=== PATIENT | female | born 1945 | race Caucasian/White ===

== ENCOUNTER 2017-04-11 12:54 | Emergency (ER) | payer OTHER ==
[~2017-04-11] VITALS: Ht 190.5 cm; Wt 90.3 kg
[2017-04-11] MEDS ORDERED: cloNIDine HCL 0.1 MG TAB PO ONE (13:15)
[2017-04-11 14:05] LABS: Basophils # (auto) 0.1 uL; Basophils % (auto) 0.5 % (0.0-2.0); Eosinophils # (auto) 0.2 uL; Eosinophils % (auto) 1.7 % (0.0-7.0); Hematocrit 42.6 % (36.0-46.0); Hemoglobin 14.4 g/dL (12.2-16.2); Lymphocytes # (auto) 4.4 uL; Lymphocytes % (auto) 40.8 % (10.0-50.0); Mean Corpuscular Hemoglobin 30.8 pg (28.0-32.0); Mean Corpuscular Hgb Conc. 33.7 g/dL (32.0-36.0); Mean Corpuscular Volume 91.3 fL (80.0-100.0); Monocytes # (auto) 0.5 uL; Monocytes % (auto) 4.8 % (0.0-12.0); Neutrophils # (auto) 5.6 uL; Neutrophils % (auto) 52.2 % (37.0-80.0); Nucleated Red Blood Cells % 0.6 %; Platelet Count (auto) 245 10^3/uL (140-450); Red Cell Distribution Width 13.3 % (11.8-14.3); White Blood Cell 10.7 10^3/uL (4.4-10.8)
[2017-04-11 14:33] LABS: Albumin 3.6 g/dL (3.4-5.0); Alkaline Phosphatase 74 U/L (45-117); Anion Gap 8 (5-15); Aspartate Aminotransferase 24 U/L (15-37); BUN/Creatinine Ratio 15.7; Bilirubin, Total 0.8 mg/dL (0.2-1.0); Blood Urea Nitrogen 13 mg/dL (7-18); Calcium 8.6 mg/dL (8.5-10.1); Carbon Dioxide 25 mmol/L (21-32); Chloride 107 mmol/L (98-107); GFR African American 87 mL/min; GFR Non-African American 72 mL/min; Glucose 92 mg/dL (74-106); Magnesium 2.4 mg/dL (1.6-2.6); Potassium 4.1 mmol/L (3.5-5.1); Sodium 140 mmol/L (136-145); Total Protein 6.8 g/dL (6.4-8.2)
[2017-04-11 15:13] VITALS: BP 147/68
== END 2017-04-11 15:20 | disposition home or self-care (01) ==
LOC: ER 12:54
DX: R07.89 Other chest pain (principal); I10 Essential (primary) hypertension; R51 Headache; E78.5 Hyperlipidemia, unspecified; Z90.49 Acquired absence of other specified parts of digestive tract; Z88.1 Allergy status to other antibiotic agents
CPT/HCPCS: 36415; 71010; 80053; 83735; 84484; 85025; 93005

== ENCOUNTER 2024-08-17 15:43 | Emergency (ER) | payer OTHER ==
--- NOTE | 2024-08-17 15:57 | ED.PDOC ---
HPI Comments HPI: 79 year old female ANCA presents to the ED with chief complaint of SOB and A-Fib RVR. EMS reports that the patient had went to [facility] today for a re- evaluation of her bottom lip with some swelling after a dog scratch a week ago. EMS relays that the patient was found to be A-Fib RVR on their EKG and they called 911 for assistance. Patient states she has been experiencing exertional SOB since 07/28/24. EMS notes that the patient's BP was 160/100s on route to the ED. Patient reports that she took her A-Fib medication today. Patient denies any chest pain, headache, N/V, dizziness, numbness, or weakness Initial Vital Signs: Temp : 98.1F BP: 168/100 HR: 137 RR: 20 SpO2: 98% Past Medical History: HTN, HLD, A-Fib, GERD, CLL, Prediabetes, Hypothyroidism Past Surgical History: Cholecystectomy Social History: Denies smoking, ETOH, or drug use. Medications: Pradaxa, Bisoprolol, Atorvastatin Allergies: Sulfamethoxazole w/ Trimethoprim REVIEW OF SYSTEMS: CONSTITUTIONAL: Denies acute: fever, diaphoresis, chills, generalized weakness. HEAD: Denies acute: headache, photophobia Eyes: Denies acute: Double vision, vision loss, eye pain, eye discharge. EARS: Denies acute: tinnitus, hearing loss, ear discharge, ear pain, THROAT: Denies acute: sore throat, swelling, difficulty swallowing , pain with swallowing, change in voice. NECK: Denies acute: neck pain, neck swelling, stiff neck. HEART: Denies acute : chest pain, palpitations, LUNGS: Denies acute: wheezing, cough, hemoptysis ABDOMEN: Denies acute: abdominal pain, Nausea, Vomiting, diarrhea, melena , hematemesis, hematochezia SKIN: Denies acute: rash, redness, lesions, itchiness. EXTREMITIES: Denies acute: calf pain, numbness, tingling, weakness, denies pain in extremity. Denies acute: Low back pain. Neuro: Denies acute: focal neurological deficit, motor or sensory focal neurological deficit, tremors, seizure like activity, confusion, dizziness, change in mental status, loss of bowel or bladder function, cauda equina like symptoms. : Denies acute: dysuria, hematuria, flank pain, increase in urinary frequency. PSYCH: Denies acute: hallucination, suicidal ideation, homicidal ideation. FEMALE: Denies acute: abnormal vaginal bleeding, foul odor, unusual discharge. PHYSICAL EXAM: General: no acute distress, awake and alert. Head: normocephalic, atraumatic. Neck: supple, trachea is midline, no swelling. Throat: Normal phonation. Eyes:, no erythema, no purulent discharge, no proptosis, no icterus. Heart: Irregular rate and rhythm consistent with atrial fibrillation with RVR, no significant murmur appreciated. Lungs: no apparent respiratory distress, Able to speak in full sentences. No wheezing, no rhonchi, no crackles. No stridors Clear to auscultation bilaterally. Abdomen: non tender to palpation, non distended, soft, no guarding, no rebound, + bowel sounds. Neuro: Awake, Alert, oriented to name, self, situation, follows commands GCS=15. Speech is normal. Skin: no petechia, no purpura, no cyanosis, non-pale, not jaundice. Lower extremities: --trace bilateral - Pitting edema no deformity, no focal swelling, no calf TTP. Makes eye contact. moves all four extremities. Face: no apparent facial droop. ED COURSE: Time Seen by MD: 15:53 Primary Care Provider: ASHLI Reviewed Notes: Nurses Notes, Medications, Allergies Allergies: Coded Allergies: Sulfamethoxazole w/Trimethoprim (Verified Allergy, Unknown, 04/11/17) Information Source: Patient, Emergency Med Personnel Mode of Arrival: EMS Was a procedure done? Was a procedure done?: No CP Differential Dx Differential Diagnosis: A-fib, A-Flutter, Angina, Anxiety / Panic Attack, Atrial Dysrhythmia, AV Block 1st Degree, AV Block 2nd Degree, AV Block 3rd Degree, Digoxin Toxicity, Electrolyte Disorder, Heart Failure, Hyperthyroidism, Hyperventilation, Hypoxia, MAT, GA, PAC's, PSVT, Pulmonary Embolus, PVC's, Renal Failure, Sinus Tachycardia, Torsades De Pointes, Ventricular Dysrhythmia, V-Fib, V-Tach, WPW Differential Diagnosis: Other (DDx include ACS, unstable angina, anxiety, PE, pneumothroax, neoplasm, cardiac ischemia, COPD, asthma, CHF, pleural effusion, tobacco abuse, pneumonia, hypoxia, hypercapnia, anemia., infection/sepsis., pulmonary edema. Asthma, Cardiac tamponade, infection.) X-Ray, Labs, Meds, VS Vital Signs Date Time Temp Pulse Resp B/P (MAP) Pulse Ox O2 Delivery O2 Flow Rate FiO2 08/17/24 22:30 85 16 135/70 (91) 96 08/17/24 21:28 169/100 08/17/24 20:58 165/92 08/17/24 20:30 90 16 140/72 (94) 96 08/17/24 20:28 153/89 08/17/24 20:00 113 08/17/24 19:35 90 19 98 Room Air* 0 08/17/24 18:09 95 147/96 08/17/24 18:00 95 18 147/96 (113) 94 08/17/24 18:00 98 08/17/24 17:25 132 18 96 Room Air* 0 08/17/24 17:09 129 155/88 08/17/24 16:10 97.9 132 18 146/93 (110) 96 97.9 08/17/24 15:45 98.1 110 20 168/100 (122) 98 98.1 08/17/24 15:44 137 Lab Test 08/17/24 20:04 08/17/24 17:40 08/17/24 16:36 Range/Units Troponin I High Sensitivity 10 9 9 </=34 ng/L White Blood Count 2.6 L 4.4-10.8 10^3/uL Red Blood Count 4.17 4.0-5.20 10^6/uL Hemoglobin 13.1 12.2-16.2 g/dL Hematocrit 38.6 36.0-46.0 % Mean Corpuscular Volume 92.6 80.0-100.0 fL Mean Corpuscular Hemoglobin 31.4 28.0-32.0 pg Mean Corpuscular Hemoglobin Concent 33.9 32.0-36.0 g/dL Red Cell Distribution Width 16.0 H 11.8-14.3 % Platelet Count 154 140-450 10^3/uL Mean Platelet Volume 7.7 6.9-10.8 fL Neutrophils (%) (Auto) 37.0-80.0 % Lymphocytes (%) (Auto) 10.0-50.0 % Monocytes (%) (Auto) 0.0-12.0 % Basophils (%) (Auto) 0.0-2.0 % Neutrophils # (Auto) 1.6-8.6 10 ^3/uL Lymphocytes # (Auto) 0.4-5.4 10 ^3/uL Monocytes # (Auto) 0-1.3 10 ^3/uL Differential Total Cells Counted 100.0 100 Neutrophils % (Manual) 40 37.0-80.0 Band Neutrophils % (Manual) 2 Lymphocytes % (Manual) 42 10.0-50.0 Monocytes % (Manual) 16 H 0-12 Eosinophils % (Manual) 0 0-7 Basophils % (Manual) 0 0.0-2.0 Metamyelocytes % (manual) 0 Myelocytes % (Manual) 0 Promyelocytes % (Manual) 0 Blast Cells % (Manual) 0 Reactive Lymphocytes 0 Platelet Estimate Adequate Sodium Level 143 136-145 mmol/L Potassium Level 4.4 3.5-5.1 mmol/L Chloride Level 109 H 98-107 mmol/L Carbon Dioxide Level 26 20-31 mmol/L Anion Gap 8 5-15 Blood Urea Nitrogen 10 9-23 mg/dL Creatinine 0.90 0.550-1.02 mg/dL Glomerular Filtration Rate Calc 65 >90 mL/min BUN/Creatinine Ratio 11.1 10.0-20.0 Serum Glucose 106 74-106 mg/dL Lactic Acid Level 1.1 0.4-2.0 mmol/L Calcium Level 9.4 8.7-10.4 mg/dL Total Bilirubin 2.2 H 0.2-1.0 mg/dL Aspartate Amino Transferase (AST) < 8 L 13-40 U/L Alanine Aminotransferase (ALT) < 9 7-40 U/L Alkaline Phosphatase 114 46-116 U/L B-Type Natriuretic Peptide 696.70 0-100 pg/mL Total Protein 5.9 5.7-8.2 g/dL Albumin 4.2 3.2-4.8 g/dL Current Medications Medications (Trade) Dose Ordered Sig/Shivam Route Start Time Stop Time Status Last Admin Metoprolol Tartrate (Lopressor) 5 mg ONCE ONCE IV 08/17/24 17:00 08/17/24 17:01 DC 3/21/25 17:09 Diltiazem HCl (Cardizem Injection) 10 mg ONCE ONCE IV 08/17/24 17:45 08/17/24 17:46 DC 08/17/24 17:48 Diltiazem HCl 125 ml @ 5 mls/hr Q24H ONCE IV 08/17/24 20:15 08/18/24 20:14 08/17/24 20:28 [place] [id number] Ph: [phone] DIAGNOSTIC IMAGING Diagnostic Imaging Report : [id number] Signed PATIENT: YARON LERMAACCT: [id number] UNIT: [id number] : 1945 LOC: ER ROOM / BED: / AGE / SEX: 79 / F ADM STATUS: REG ER SERVICE [id number] ORDERING PHYSICIAN: JAYLEN RODRIGUEZ DO PROCEDURE(s): CXRP - CHEST PORTABLE REASON: sob, afib ORDER NUMBER(s): [id number], ACCESSION NUMBER(s): [id number] CHEST RADIOGRAPH Indication: sob, afib Technique: Single frontal view of the chest was obtained COMPARISON: None FINDINGS: Lines and Tubes: None Lungs: Clear Pleura: Slight blunting left costophrenic angle. No pneumothorax. Cardiomediastinal contours: Unremarkable Bones: Unremarkable IMPRESSION: 1. Slight blunting left costophrenic angle. Small pleural effusion can not be excluded. ATED BY: KT MAZA MD DICTATED DATE/TIME: 08/17/241650 SIGNED BY: KT MAZA MD SIGNED DATE/TIME: 08/17/241650 CC: Time of 1ST Reevaluation: 16:53 Reevaluation 1ST: Unchanged Time of 2ND Reevaluation: 17:55 ( The case was discussed with the [facility] admitting team (HPI, physical exam, labs and diagnostic tests that were available at the time of disposition, ED course, treatment plan) on the phone. They transfer the patient to their service by ALS for further evaluation and treatment. Dr. Hay. Authorization number is--[id number].The [facility] physician stated that the patient's last echocardiogram was approximately a year and a half ago 55-60% EF) Time of 3RD Reevaluation: 20:03 (Patient was given Lopressor initially. Heart rate did not improve. Patient was given diltiazem bolus. Heart rate improved and responded. Patient went to the bathroom and came back and she went back to atrial fibrillation with RVR. Diltiazem drip was initiated. Still waiting for [facility] to transfer the patient) Patient Education/Counseling: Diagnosis, Treatment Family Education/Counseling: No Family Present Comments Patient presented with the above HPI.----dyspnea and atrial fibrillation with RVR--workup was initiated. patient was found with the above mentioned diagnosis. the following medications were ordered: please refer to order lists of meds and tests obtained by myself Dr. Rodriguez. Patient ED course and VS have been stabilized. Patient has been reassessed in the ED and remained in a stable condition. Pertinent incidental findings were discussed with the patient and/or family. Patient/family voices understanding and is agreeable with plan. Patient has been observed in the ED adequate length of time to insure improvement/stability. Escalation of care considered: Consideration of escalation to observation or admission Patient was given multiple IV interventions to control her rate. Patient was subsequently placed on diltiazem drip. Patient was transferred to [facility] per insurance requirement for further evaluation and treatment. All the reports of any imaging studies that were ordered by myself were reviewed by myself. Departure 1 Departure Time of Disposition: 16:53 Impression: Primary Impression: Atrial fibrillation with RVR Additional Impression: Dyspnea Disposition: 02 SHORT TERM HOSPITAL Admit to: Tele Condition: Guarded Discharged With: Self Critical Care Note Critical Care Time?: Yes (55 min-critical care time only) Heart Score Heart Score: Heart Score Response (Comments) Value History Moderate Suspicious 1 EKG Repolarization Disturb 1 Age >65 2 Risk Factors >3 or Hx ASHD 2 Troponin Normal limit 0 Total 6 I personally scribed for JAYLEN RODRIGUEZ DO ([email or web address]) on 08/17/24 at 15:57. Electronically submitted by Yassine King ([email or web address]). I personally scribed for JAYLEN RODRIGUEZ DO ([email or web address]) on 08/17/24 at 15:58. Electronically submitted by Yassine King ([email or web address]). I personally scribed for JAYLEN RODRIGUEZ DO ([email or web address]) on 08/17/24 at 17:43. Electronically submitted by Yassine King ([email or web address]). JAYLEN RODRIGUEZ DO Aug 17, 2024 15:57
[2024-08-17 16:49] LABS: Hematocrit 38.6 % (36.0-46.0); Hemoglobin 13.1 g/dL (12.2-16.2); Mean Corpuscular Hemoglobin 31.4 pg (28.0-32.0); Mean Corpuscular Hgb Conc. 33.9 g/dL (32.0-36.0); Mean Corpuscular Volume 92.6 fL (80.0-100.0); Platelet Count (auto) 154 10^3/uL (140-450); Red Blood Cells 4.17 10^6/uL (4.0-5.20); White Blood Cell 2.6 10^3/uL (4.4-10.8)
--- NOTE | 2024-08-17 16:53 | DVH ---
CHEST RADIOGRAPH Indication: sob, afib Technique: Single frontal view of the chest was obtained COMPARISON: None FINDINGS: Lines and Tubes: None Lungs: Clear Pleura: Slight blunting left costophrenic angle. No pneumothorax. Cardiomediastinal contours: Unremarkable Bones: Unremarkable IMPRESSION: 1. Slight blunting left costophrenic angle. Small pleural effusion can not be excluded.
[2024-08-17 17:00] LABS: Basophils % (manual) 0 (0.0-2.0); Blast Cells 0; Eosinophils % (manual) 0 (0-7); Metamyelocytes % 0; Myelocytes % 0; Promyelocytes % 0; Reactive Lymphocytes 0
[2024-08-17 17:07] LABS: Albumin 4.2 g/dL (3.2-4.8); Alkaline Phosphatase 114 U/L (46-116); Anion Gap 8 (5-15); BUN/Creatinine Ratio 11.1 (10.0-20.0); Blood Urea Nitrogen 10 mg/dL (9-23); Calcium 9.4 mg/dL (8.7-10.4); Carbon Dioxide 26 mmol/L (20-31); Potassium 4.4 mmol/L (3.5-5.1); Sodium 143 mmol/L (136-145); Total Protein 5.9 g/dL (5.7-8.2)
[2024-08-17] MEDS: METOPROLOL TARTRATE 1MG/1ML-5ML VIAL IV ONE (17:09)
[2024-08-17 17:11] LABS: Alanine Aminotransferase < 9 U/L (7-40); Aspartate Aminotransferase < 8 U/L (13-40); Bilirubin, Total 2.2 mg/dL (0.2-1.0); Chloride 109 mmol/L (98-107); Glucose 106 mg/dL (74-106)
[2024-08-17 17:25] VITALS: PULSE 132; RESP 18; O2SAT 96
[2024-08-17] MEDS: dilTIAZem 25 MG/5 ML VIAL IV ONE (17:48)
[2024-08-17 19:35] VITALS: PULSE 90; RESP 19; O2SAT 98
[2024-08-17 19:39] LABS: Band Neutrophils % (manual) 2; Lymphocytes % (manual) 42 (10.0-50.0); Monocytes % (manual) 16 (0-12)
[2024-08-17 19:40] LABS: Platelet Estimate Adequate
[2024-08-17] MEDS: dilTIAZem 125mg/125ml BAG KIT 125 ML IV ONE (20:28)
[2024-08-17 23:49] VITALS: BP 118/68; PULSE 91; RESP 18; TEMP 98.2; O2SAT 97
--- NOTE | 2024-08-20 09:58 | ECG ---
[facility] Test Date: 2024-08-17 Test Time: 15:44:12 Pat Name: YARON LERMA Department: ED Room: Gender: F Web Analyst: SUHAIL : 1945 Requested By: JAYLEN RODRIGUEZ Order Number: [id number] Reading MD: Measurements Intervals [place] Rate: 137 P: 0 DE: 0 QRS: 66 QRSD: 71 T: 59 QT: 318 QTc: 480 Interpretive Statements Atrial fibrillation Anteroseptal infarct, age indeterminate Please click the below link to view image of tracing.
== END 2024-08-17 17:23 | disposition short-term general hospital (02) ==
LOC: EDBD 15:43 → ER 15:43 → EDUNIT# 15:43 → ER 17:23
DX: I48.20 Chronic atrial fibrillation, unspecified (principal); R06.00 Dyspnea, unspecified; I10 Essential (primary) hypertension; R06.02 Shortness of breath; E78.5 Hyperlipidemia, unspecified; E03.9 Hypothyroidism, unspecified; Z88.1 Allergy status to other antibiotic agents; Z88.2 Allergy status to sulfonamides; Z90.49 Acquired absence of other specified parts of digestive tract
CPT/HCPCS: 36415; 71045; 80053; 83605; 83880; 84484; 85007; 85027; 93005; 96374; 96375; 99291